=== PATIENT | female | born 1935 | race Caucasian/White ===

== ENCOUNTER → 2017-09-23 | Outpatient (CLI) | payer MEDICARE, BC ==
[~2017-09-23] MED LIST: ASPIRIN 81M81 MG/TA2 PO; COZAAR100 MG PO; NORCO 325 MG-7.1 TAB PO
== END ==
LOC: MC.RAD 16:08
DX: Z12.31 Encounter for screening mammogram for malignant neoplasm of breast (principal)

== ENCOUNTER → 2019-08-25 | Outpatient (CLI) | payer MEDICARE, BC | LOC: MC.RAD 10:32 | DX: Z12.31 Encounter for screening mammogram for malignant neoplasm of breast (principal); R92.0 Mammographic microcalcification found on diagnostic imaging of breast; Z98.890 Other specified postprocedural states ==

== ENCOUNTER → 2019-08-27 | Outpatient (CLI) | payer MEDICARE, BC | LOC: MC.RAD 10:55 | DX: R92.0 Mammographic microcalcification found on diagnostic imaging of breast (principal) ==

== ENCOUNTER → 2020-08-29 | Outpatient (CLI) | payer MEDICARE, BC | LOC: MC.RAD 09:25 | DX: Z12.31 Encounter for screening mammogram for malignant neoplasm of breast (principal); Z98.890 Other specified postprocedural states ==

== ENCOUNTER 2021-06-27 12:35 | Emergency (ER) | payer MEDICARE, BC ==
[2021-06-27] VITALS (12 sets, daily range): BP systolic 125–145; BP diastolic 52–71; PULSE 79–85; TEMP 98.3–98.7
[~2021-06-27] VITALS: Ht 165.1 cm; Wt 77.7 kg
[2021-06-27 13:17] LABS: BASO % 0.4 % (0.0-2.0); EOS % 0.3 % (0-4.0); GRAN % 69.7 % (42.2-75.2); LYMPH # 1.3 (1.2-3.4); LYMPH % 17.8 % (20.0-51.0); MEAN CELL VOLUME 75 fl (80.0-100.0); MEAN CORPUSCULAR HGB CONC 29 g/dl (33.0-37.0); MEAN PLATELET VOLUME 9.1 fl (7.4-10.4); MONO # 0.8 (0.1-0.6); PLATELET COUNT 427 K/mm3 (130-400); RED BLOOD COUNT 2.09 M/mm3 (4.10-5.30); REDCELL DISTRIBUTION WIDTH-CV 17.4 % (11.5-14.5)
[2021-06-27] MEDS ORDERED: XARELTO20 MG PO (13:19)
[2021-06-27 13:24] LABS: ALBUMIN 3.6 gm/dL (3.5-5.0); BILIRUBIN,TOTAL 0.3 mg/dL (0.0-1.0); CALCIUM 8.2 mg/dL (8.4-10.2); CREATININE, serum 1.02 (0.52-1.25); POTASSIUM 4.4 mmol/L (3.4-5.0); TOTAL PROTEIN 6.2 gm/dL (6.4-8.2)
[2021-06-27 13:25] LABS: HEMATOCRIT 15.7 % (37.0-47.0); HEMOGLOBIN 4.5 g/dl (12.5-16.0); MEAN CORPUSCULAR HEMOGLOBIN 22 pg (27.0-31.0)
== END 2021-06-27 16:40 | disposition left against medical advice (07) ==
LOC: COL.ER 12:35
PROVIDERS: Personal Emergency Response Attendant
DX: D64.9 Anemia, unspecified (principal); K92.2 Gastrointestinal hemorrhage, unspecified; Z86.718 Personal history of other venous thrombosis and embolism; Z79.01 Long term (current) use of anticoagulants
CPT/HCPCS: P9016

== ENCOUNTER → 2021-06-28 | Outpatient (CLI) | payer MEDICARE, BC ==
[~2021-06-28] MED LIST changes: +CALCIUM 600600 MG PO; +D3-5050000 IU PO; +FERRO-TIME325 MG PO; +FERROUS SU325 MG/TAB PO; +MICARDIS80 MG PO; +PROTONIX 40MG T40 MG PO; +XARELTO20 MG PO
== END ==
LOC: COL.RAD 13:05
DX: T82.868A Thrombosis due to vascular prosthetic devices, implants and grafts, initial encounter (principal)
CPT/HCPCS: Q9967

== ENCOUNTER 2021-07-10 11:58 | Inpatient (IN) | payer MEDICARE, BC ==
[2021-07-10] VITALS (16 sets, daily range): BP systolic 111–134; BP diastolic 48–64; PULSE 71–89; TEMP 98–98.8
[~2021-07-10] VITALS: Ht 160.1 cm; Wt 77.7 kg
[~2021-07-10 11:58] MED LIST changes: -CALCIUM 600600 MG PO; -D3-5050000 IU PO; -FERRO-TIME325 MG PO; -FERROUS SU325 MG/TAB PO; -MICARDIS80 MG PO; -PROTONIX 40MG T40 MG PO
[2021-07-10 12:50] LABS: ALBUMIN 3.1 gm/dL (3.5-5.0); BILIRUBIN,TOTAL 0.1 mg/dL (0.0-1.0); CALCIUM 7.9 mg/dL (8.4-10.2); CREATININE, serum 1.09 (0.52-1.25); POTASSIUM 4.4 mmol/L (3.4-5.0); TOTAL PROTEIN 5.7 gm/dL (6.4-8.2)
[2021-07-10 12:51] LABS: BASO % 0.1 % (0.0-2.0); EOS % 0.4 % (0-4.0); GRAN # 5.4 (1.4-6.5); GRAN % 69.7 % (42.2-75.2); LYMPH # 1.4 (1.2-3.4); LYMPH % 17.9 % (20.0-51.0); MEAN CELL VOLUME 74 fl (80.0-100.0); MEAN CORPUSCULAR HGB CONC 27 g/dl (33.0-37.0); MEAN PLATELET VOLUME 9.4 fl (7.4-10.4); MONO # 0.9 (0.1-0.6); PLATELET COUNT 543 K/mm3 (130-400); REDCELL DISTRIBUTION WIDTH-CV 20.5 % (11.5-14.5)
[2021-07-10 12:53] LABS: INR 1.1 (0.8-3.0); PROTHROMBIN TIME 11.8 SECONDS (9.7-12.8)
[2021-07-10 12:56] LABS: HEMATOCRIT 12.6 % (37.0-47.0); HEMOGLOBIN 3.4 g/dl (12.5-16.0); MEAN CORPUSCULAR HEMOGLOBIN 20 pg (27.0-31.0); PARTIAL THROMBOPLASTIN TIME 22.4 SECONDS (26.0-37.0)
[2021-07-10] MEDS ORDERED: MICARDIS80 MG PO (15:10)
[2021-07-10] MEDS ORDERED: CALCIUM 600600 MG PO (15:12)
[2021-07-10] MEDS ORDERED: D3-5050000 IU PO (15:12)
[2021-07-10] MEDS ORDERED: PROTONIX 40MG T40 MG PO (15:13)
--- NOTE | 2021-07-10 18:10 | NUR ---
Pt arrived to room 354, she is A/O x4. She ambulates with SBA. SOB with exertion. Reports diarrhea for the last four nights, has not had a stool here. Denies pain. POC discussed with patient including the transfusions she will receive. Clear liquids provided. First unit completed from ER.
--- NOTE | 2021-07-10 19:26 | NUR ---
Second unit of blood started at this time. Protocol followed. This nurse will remain at bedside for first fifteen minutes of transfusion.
[2021-07-11] VITALS (9 sets, daily range): BP systolic 125–146; BP diastolic 53–72; PULSE 75–83; TEMP 98–98.8
--- NOTE | 2021-07-11 04:15 | NUR ---
Patient has finished all 4 bags of blood transfusion. She tolerated well with no signs of transfusion reaction. Patient has ambulated with x1 assist to bathroom twice tonight. She had a medium BM with no signs of blood. She has been NPO since midnight. Call light in reach, will continue to monitor.
[2021-07-11 07:16] LABS: BASO % 0.7 % (0.0-2.0); EOS % 0.3 % (0-4.0); GRAN # 4.4 (1.4-6.5); GRAN % 75.5 % (42.2-75.2); LYMPH # 0.7 (1.2-3.4); LYMPH % 12.1 % (20.0-51.0); MEAN CORPUSCULAR HGB CONC 31 g/dl (33.0-37.0); MEAN PLATELET VOLUME 9.3 fl (7.4-10.4); MONO # 0.6 (0.1-0.6); MONO % 10.4 % (1.7-9.3); RED BLOOD COUNT 2.85 M/mm3 (4.10-5.30); REDCELL DISTRIBUTION WIDTH-CV 21.2 % (11.5-14.5)
[2021-07-11 07:18] LABS: HEMOGLOBIN 7.1 g/dl (12.5-16.0); MEAN CELL VOLUME 81 fl (80.0-100.0); MEAN CORPUSCULAR HEMOGLOBIN 25 pg (27.0-31.0); PLATELET COUNT 344 K/mm3 (130-400)
[2021-07-11 07:29] LABS: CALCIUM 7.7 mg/dL (8.4-10.2); CREATININE, serum 0.89 (0.52-1.25); POTASSIUM 4.3 mmol/L (3.4-5.0)
--- NOTE | 2021-07-11 10:29 | NUR ---
Initial visit; Patient thanked Movie Machine Operator for looking in on her and offering God's blessings and to keep her in Chaplains prayers.
--- NOTE | 2021-07-11 10:56 | NUR ---
DAPHNE met with the patient to discuss discharge plan. The patient lives alone in [place]. She states that she has no family that live nearby, but has great friend support. She reports independence with ADLs and has a cane and walker. The patient's PCP is Dr. Radha Jessica and she receives her medications from [facility]. She reports no difficulties obtaining her meds. The patient does not have a DPOA-HC in EMR, but she states that she does have one completed and that the document is at home. She states that she designated her son, Prakash (ph#[phone]). Prakash lives in [place], [place]. The patient plans to return home upon discharge. She states that a friend will transport her home. DAPHNE asked the PA for PT/OT to be ordered. Due to the patient's hemoglobin being low, PT/OT will be held for now. SW attempted to contact the patient's son, Prakash. SW left him a voicemail. SW to continue to follow. *Discharge plan: home. Awaiting therapy's recs*
[2021-07-11 15:14] LABS: HEMATOCRIT 25.1 % (37.0-47.0); HEMOGLOBIN 7.7 g/dl (12.5-16.0)
--- NOTE | 2021-07-11 19:44 | NUR ---
Pt had EGD today, plan to have colonoscopy tomorrow. Discussed this with the patient. Patient wanted to d/c home and prep there. LYNNE Chowdhury discussed importance of staying with her. Patient agreeable. Denies an improvement in symptoms (dizziness, SOB). Discussed safety when up ambulating with her. Pt has denied any pain. No needs at this time. Call light within reach.
[2021-07-11 21:31] LABS: HEMOGLOBIN 8.5 g/dl (12.5-16.0)
[2021-07-12] VITALS (9 sets, daily range): BP systolic 106–154; BP diastolic 49–92; PULSE 70–87; TEMP 97.7–98.5
[2021-07-12 06:52] LABS: BASO # 0.1 (0.0-0.2); BASO % 0.9 % (0.0-2.0); EOS # 0.1 (0.0-0.7); EOS % 1.1 % (0-4.0); GRAN # 5.8 (1.4-6.5); GRAN % 72.3 % (42.2-75.2); LYMPH # 1.1 (1.2-3.4); LYMPH % 13.7 % (20.0-51.0); MEAN CELL VOLUME 79 fl (80.0-100.0); MEAN CORPUSCULAR HGB CONC 32 g/dl (33.0-37.0); MEAN PLATELET VOLUME 9.4 fl (7.4-10.4); MONO # 0.9 (0.1-0.6); MONO % 10.8 % (1.7-9.3); PLATELET COUNT 414 K/mm3 (130-400); REDCELL DISTRIBUTION WIDTH-CV 21.5 % (11.5-14.5)
[2021-07-12 06:53] LABS: HEMOGLOBIN 8.4 g/dl (12.5-16.0); MEAN CORPUSCULAR HEMOGLOBIN 25 pg (27.0-31.0)
--- NOTE | 2021-07-12 07:00 | NUR ---
Report received from Radha RENNER. Pt sitting on edge of bed, bowel prep almost complete. Reports she had to slow down d/t nausea but tolerating okay at slower pace. Denies needs at this time. Continuing to monitor.
[2021-07-12 07:09] LABS: CALCIUM 8.1 mg/dL (8.4-10.2); CREATININE, serum 0.83 (0.52-1.25); POTASSIUM 3.7 mmol/L (3.4-5.0)
--- NOTE | 2021-07-12 07:50 | NUR ---
Shift assessment complete. Pt sitting on edge of bed. Had BM while this RN in room, BM clear liquid at this time. Has about 1 cup remaining on bowel prep, pt sipping on it slowly. A&Ox4. Heart RRR. Lungs CTA. Denies pain, dizziness, SOA or other concerns. Denies any tenderness to right upper leg, no bruising noted. Denies needs at this time. Continuing to monitor.
--- NOTE | 2021-07-12 08:50 | NUR ---
Bowel prep completed at this time.
--- NOTE | 2021-07-12 12:00 | NUR ---
Pt off unit for colonoscopy at this time.
[2021-07-12] MEDS ORDERED: FERROUS SU325 MG/TAB PO (15:50)
--- NOTE | 2021-07-12 16:13 | NUR ---
The patient is to discharge back home today, 07/12. DAPHNE met with the patient to follow up. The patient states that is returning back home and a friend will transport her home. SW contacted and updated her son, Prakash. Prakash reports that he is on his way up to [place] and will be at the patient's home in an hour. No additional needs at this time.
--- NOTE | 2021-07-12 16:30 | NUR ---
Discharge instructions discussed w/pt and all questions answered. IVs to right AC and left hand removed, tips intact. Pt escorted out to ride via wheelchair w/all belongings.
== END 2021-07-12 16:30 | disposition home or self-care (01) | DRG 378 ==
LOC: COL.ER 11:58 → MEDICAL 13:45
PROVIDERS: Emergency Medicine; Physician Assistant; ADMIT Student in an Organized Health Care Education/Training Program
PROC: 0D5P8ZZ Destruction of Rectum, Via Natural or Artificial Opening Endoscopic (ICD-10-PCS; principal; 2021-07-10)
PROC: 0DBP8ZZ Excision of Rectum, Via Natural or Artificial Opening Endoscopic (ICD-10-PCS; 2021-07-10)
DX: K92.2 Gastrointestinal hemorrhage, unspecified (principal); D62 Acute posthemorrhagic anemia; E87.2 Acidosis; I82.531 Chronic embolism and thrombosis of right popliteal vein; R55 Syncope and collapse; D12.8 Benign neoplasm of rectum; Z66 Do not resuscitate; Z20.822 Contact with and (suspected) exposure to COVID-19; Z85.3 Personal history of malignant neoplasm of breast; Z79.82 Long term (current) use of aspirin
CPT/HCPCS: 99222-AI; 99232-AI; 99239; C9113; J2704; J7030; P9016; Q9967

== ENCOUNTER 2021-07-18 09:58 | Day surgery (SDC) | payer MEDICARE, BC ==
[~2021-07-18] VITALS: Ht 160.2 cm; Wt 75.4 kg
[2021-07-18] VITALS (8 sets, daily range): BP systolic 135–188; BP diastolic 65–82; PULSE 65–75; TEMP 98.1
[~2021-07-18 09:58] MED LIST changes: +CALCIUM 600600 MG PO; +D3-5050000 IU PO; +FERROUS SU325 MG/TAB PO; +MICARDIS80 MG PO; +PROTONIX 40MG T40 MG PO
[2021-07-18] MEDS ORDERED: FERRO-TIME325 MG PO (10:42)
[2021-07-18] MEDS ORDERED: MICARDIS80 MG PO (10:47)
--- NOTE | 2021-07-18 12:30 | NUR ---
Report from Alberto RENNER. Transferred from tender labor by bed. Right groin site CD&I. Alert and oriented, denies pain and needs at this time. VSS
--- NOTE | 2021-07-18 14:35 | NUR ---
INT discontinued intact. Right groin soft to palpation with ambulation.
--- NOTE | 2021-07-18 14:50 | NUR ---
Discharge instructions given. Transferred to private car by pawan
== END 2021-07-18 14:51 | disposition home or self-care (01) ==
LOC: COL.CAR 09:58
DX: I82.501 Chronic embolism and thrombosis of unspecified deep veins of right lower extremity (principal)
CPT/HCPCS: C1880; C1894; J1644; J7120; Q9967

== ENCOUNTER 2022-01-04 11:13 | Inpatient (IN) | payer MEDICARE, BC ==
[~2022-01-04] VITALS: Ht 160 cm; Wt 66.8 kg
[~2022-01-04 11:13] MED LIST changes: +FERRO-TIME325 MG PO
[2022-03-05] VITALS (12 sets, daily range): BP systolic 130–170; BP diastolic 52–79; PULSE 64–89; TEMP 97.6–98.2
--- NOTE | 2022-03-05 05:50 | NUR ---
86 Year old [place] [facility] [place]. Pt was able to stand on a floor scale for weight, height obtained. Son, Orlando is present #[phone]. Medications and HX reviewed. Procedure verified and consent signed. First and last name + verified with pt, who verbalized understanding of procedure. Pt states she is [employer] > 5 years. Pt used the bathroom prior to changing into a clean gown. L knee was scrubbed with CHG, rosa's applied to non-operative side. Warm blankets provided. Non-slip socks are on. IV started in L hand on first attempt with 20G. IVF scanned and are infusing without difficulty. Side rails x2. Physical assessment completed. Call christianson is within reach on side table. Glasses removed to black bag.
[2022-03-05] MEDS ORDERED: VITAMIN C500 MG PO (06:13)
[2022-03-05] MEDS ORDERED: FOLIC ACID 40400 MCG PO (06:13)
[2022-03-05] MEDS ORDERED: TYLENOL PM EXTR1 TA1 PO (06:14)
--- NOTE | 2022-03-05 06:54 | NUR ---
Pt taken to the OR by JUD Hobbs.
--- NOTE | 2022-03-05 09:50 | NUR ---
PATIENT ADMITED INTO ROOM 327 POST OP LTK. A&O. VSS. LEFT KNEE DRESSING IS CD&I WITH BULKY ACEWRAP DRESSING AND ICE PACK INPLACE. TEDS TO RLE. SCD'S TO BLE. POSITIVE PEDAL PULSES TO BLE. NO C/O PAIN OR NAUSEA. IV FLUIDS INFUSING INTO LEFT HAND IV. LIQUIDS AT BEDSIDE. NOT VOIDED POST OP YET. HEAD TO TOE ASSESSMENT COMPLETE. FAMILY AT BEDSIDE. ORIENTED TO ROOM. CALL LIGHT IN REACH. NO OTHER NEEDS AT THIS TIME.
--- NOTE | 2022-03-05 11:28 | NUR ---
PATIENT CALLED OUT C/O SUDDENT PAIN IN HER LLE. SPINAL HAS WORN OFF. GAVE PRN ROXICODONE, ONE TAB FOR PAIN WITH CRACKERS. REPOSITIONED LLE WITH PILLOWS. PATIENT REQUESTING TO HAVE ICE PACK OFF FOR A LITTLE WHILE. SON AT BEDSIDE. NO OTHER NEEDS.
--- NOTE | 2022-03-05 14:30 | NUR ---
NURSING WENT TO CHECK ON PATIENT'S PAIN, SHE WAS SLEEPING SOUNDLY. SON LEFT FOR A WHILE. NO NEEDS. CALL LIGHT IN REACH.
--- NOTE | 2022-03-05 16:30 | NUR ---
PATIENT NOW AWAKE AND WANTING TO SIT AT EDGE OF BED, TOLERATED ACTIVITY WELL. GAVE PRN ROXICODONE, ONE TAB. FAMILY BACK AT BEDSIDE. PATIENT REPOSITIONED TO COMFORT BACK UP IN BED. NO OTHER NEEDS. CALL LIGHT IN REACH.
--- NOTE | 2022-03-05 22:06 | NUR ---
Received report from day shift. Patient alert and oriented x4. VSS. Surgical site assessed. Site CDI and wrapped with ghulam bandage. PM meds administered. Patient requested zofran for nausea, states evening meal was not appealing and appetite was not strong. Patient denies need for pain medication. Denies need for ICE pack. Patient resting in bed with call light near.
[2022-03-06 04:23] VITALS: BP 149/65; PULSE 85; TEMP 98.5
[2022-03-06 06:19] LABS: HEMOGLOBIN 10.3 g/dl (12.5-16.0)
[2022-03-06 06:23] LABS: HEMATOCRIT 31.4 % (37.0-47.0)
[2022-03-06 08:00] VITALS: BP 143/53; PULSE 78; TEMP 98.4
--- NOTE | 2022-03-06 09:32 | NUR ---
Initial visit; Patient thanked Charging Plug Placer for looking in on her and offering God's blessings and keeping her in Charging Plug Placer's prayers.
--- NOTE | 2022-03-06 10:26 | NUR ---
PT RESTING IN RECLINER AFTER THERAPY. AMBULATED WITH A SLOW STEADY GAIT WITH THERAPY. VSS, AM MEDS GIVEN. PT RATING PX @ 09/10. PO MEDS GIVEN AND PT REPORTING PAIN @ 04/10. PT IS A/O X4, EATING AND DRINKING WITH NO N/V.
[2022-03-06 11:31] VITALS: BP 139/72; PULSE 78; TEMP 98.1
--- NOTE | 2022-03-06 12:26 | NUR ---
final assembly worker met with patient to discuss discharge plan. Patient's son Orlando ([phone]) present at bedside. Patient reports that she lives at home alone in [place]. She is independent with her ADL's and uses both a cane and a walker to assist with ambulation. Patient reports to no home oxygen needs. PCP is Dr. Radha Jessica and she uses [facility] ([facility]) for perscriptions with no cost difficulty. Patient does have a DPOA-HC established and a copy can be found in her paper chart. When asked if she has outpatient therapy set up she states that it is set up through [facility]. Discharge plan: Unknown at this time; pending PT/OT pop
--- NOTE | 2022-03-06 12:54 | NUR ---
DRESSING CHANGE COMPLETE, INCISION CDI WITH WELL APPROXIMATED EDGES, AQUACEL AND TEDS PLACED OVER INCISION. PT TOLERATED WELL. PROVIDED EDUCATION ON IMPORTANCE OF STRAIGHTENING OPERATIVE LEG AND NOT RESTING ON PILLOW BEHIND LEG. PT FOUND TO REST WITH BEND IN KNEE. REPOSITIONED AND EXPLAINED IMPORTANCE OF KEEPING OPERATIVE LEG EXTENDED AND NOT RESTING WITH SIGNIFICANT BEND IN KNEE.
[2022-03-06 16:00] VITALS: BP 133/70; PULSE 76; TEMP 98.2
[2022-03-06 20:04] VITALS: BP 162/91; PULSE 80; TEMP 98.5
[2022-03-07 00:07] VITALS: BP 149/67; PULSE 87; TEMP 98.5
--- NOTE | 2022-03-07 00:14 | NUR ---
Received report from day shift. Patient here for LTK. VSS. Patient alert and oriented x4. Patient denies pain at this time. Patient ambulated george with PCT. Patient tolerated activity well. Assessment performed. PM meds administered. Patient resting in bed with call light near.
[2022-03-07 03:59] VITALS: BP 130/43; PULSE 80; TEMP 98
--- NOTE | 2022-03-07 05:47 | NUR ---
Patient had an uneventful night. Patient denied pain and was instructed to lay the left leg flat to allow the effected leg to extend. Patient has been keeping the effected leg slightly flexed. Patient given scheduled Tylenol. Patient is resting in bed with call light near.
[2022-03-07 07:14] VITALS: BP 149/63; PULSE 89; TEMP 98.7
[2022-03-07 08:47] LABS: BASO % 0.2 % (0.0-2.0); EOS % 0.1 % (0.0-4.0); GRAN # 7.5 K/mm3 (1.4-6.5); GRAN % 80.3 % (42.2-75.2); HEMOGLOBIN 11.2 g/dl (12.5-16.0); LYMPH # 0.7 K/mm3 (1.2-3.4); LYMPH % 7.7 % (20.0-51.0); MEAN CELL VOLUME 84 fl (80.0-100.0); MEAN CORPUSCULAR HEMOGLOBIN 28 pg (27-31); MEAN CORPUSCULAR HGB CONC 33 g/dl (33.0-37.0); MEAN PLATELET VOLUME 9.3 fl (7.4-10.4); MONO # 1.1 K/mm3 (0.1-0.6); MONO % 11.4 % (1.7-9.3); PLATELET COUNT 289 K/mm3 (130-400); RED BLOOD COUNT 4.04 M/mm3 (4.10-5.30)
[2022-03-07 08:53] LABS: HEMATOCRIT 34.1 % (37.0-47.0)
[2022-03-07 09:14] LABS: ALBUMIN 2.8 gm/dL (3.4-4.8); ALKALINE PHOSPHATASE 68 U/L (40-150); ANION GAP 10 mmol/L (7-16); AST,SGOT 13 U/L (5-34); BILIRUBIN,TOTAL 0.8 mg/dL (0.2-1.2); BLOOD UREA NITROGEN 17 mg/dL (10-20); CALCIUM 8.5 mg/dL (8.4-10.2); CARBON DIOXIDE 24 mmol/L (23-31); CHLORIDE 96 mmol/L (98-107); CREATININE, serum 0.82 mg/dL (0.57-1.11); GLUCOSE 98 mg/dL (70-99); POTASSIUM 3.5 mmol/L (3.5-4.5); SODIUM 130 mmol/L (136-145); TOTAL PROTEIN 6.2 gm/dL (6.2-8.1)
[2022-03-07 09:18] LABS: ALANINE AMINOTRANSFERASE < 6 U/L (0-55)
[2022-03-07 10:14] LABS: COLLECTION METHOD CATHETER
[2022-03-07 10:25] LABS: MUCOUS Present (NOT PRESENT); PH 6 (5-8); SQUAMOUS EPITHELIAL 0-2 /hpf (0-10); URINE APPEARANCE Clear (CLEAR/HAZY); URINE BACTERIA Rare /hpf (NONE SEEN); URINE BILIRUBIN Negative (NEGATIVE); URINE BLOOD 1+ (NEGATIVE); URINE COLOR Yellow (YELLOW); URINE GLUCOSE Negative (NEGATIVE); URINE KETONE Trace (NEGATIVE); URINE LEUKOCYTE ESTERASE Negative (NEGATIVE); URINE NITRATE Negative (NEGATIVE); URINE PROTEIN(semi-quant) Negative (NEGATIVE); URINE UROBILINOGEN Negative (NEGATIVE)
--- NOTE | 2022-03-07 11:02 | NUR ---
PT CONTINUES TO BE CONFUSED AND UNABLE TO.
[2022-03-07 11:16] LABS: OSMOLALITY-URINE random 235 Osm/kg (50-1200)
--- NOTE | 2022-03-07 11:41 | NUR ---
Patient was scheduled to discharge home today with OP PT. This morning the patient present altered in her mental status. Referral made to Kristin in [facility]. Spoke with the patient's son Orlando at bedside. Orlando states that he was planning on being in town until Saturday, which at that point his was planning on coming down to stay with the patient. He and his had planned on alternating weeks coming down to stay with the patient at her home until she was healed. Informed Orlando that the patient would likely need post acute rehab after today. Orlando verbalizes his agreement with this plan. He states that when he left last night she was "as sharp as a tack". I informed Orlando that i sent a referral to out I[facility] team and that if they are unable to take then we would be looking at SNF placements.
[2022-03-07 12:00] VITALS: BP 153/74; PULSE 90; TEMP 98.5
--- NOTE | 2022-03-07 12:14 | NUR ---
PT CONTINUES TO BE CONFUSED BUT NOT RESTLESS. PT RESTING QUIETLY WITH SON AT BEDSIDE. PT HAD A SIGNIFICANT CHANGE IN MENTAL STATUS. KAYLEE SANDHU NOTIFIED AND HOSPITALIST CONSULTED. SEE COMPUTER FOR NEW ORDERS. PT TO CT FOR HEAD SCAN. NEW LAB ORDERS FILLED. PT CURRENTLYU UNABLE TO FORM A COHERENT SENTENCE.
--- NOTE | 2022-03-07 12:17 | NUR ---
SPEECH THERAPY CONSULTED, THERAPISTS HAVE NOT SEEN PT YET.
[2022-03-07 16:00] VITALS: BP 133/58; PULSE 88; TEMP 98.5
--- NOTE | 2022-03-07 18:49 | NUR ---
RECEIVED CHANGE OF SHIFT REPORT FROM DAY SHIFT RN.
[2022-03-07 20:28] VITALS: BP 126/66; PULSE 98; TEMP 99.2
--- NOTE | 2022-03-07 21:29 | NUR ---
REPORTS SOME NAUSEA, DENIES ANY NEEDS FOR MEDS. AGREED TO TAKE SPRITE. DENIES CHEST PAIN/KNEE PAIN AT THIS TIME. DENIES SOA AT THIS TIME.
[2022-03-08 00:10] VITALS: BP 159/71; PULSE 81; TEMP 99
[2022-03-08 04:34] VITALS: BP 157/64; PULSE 77; TEMP 98.8
[2022-03-08 06:35] LABS: BASO % 0.5 % (0.0-2.0); EOS # 0.1 K/mm3 (0.0-0.7); EOS % 0.8 % (0.0-4.0); GRAN # 4.3 K/mm3 (1.4-6.5); GRAN % 70.5 % (42.2-75.2); LYMPH # 0.8 K/mm3 (1.2-3.4); LYMPH % 13.6 % (20.0-51.0); MEAN CELL VOLUME 85 fl (80.0-100.0); MEAN CORPUSCULAR HGB CONC 33 g/dl (33.0-37.0); MEAN PLATELET VOLUME 9.9 fl (7.4-10.4); MONO # 0.9 K/mm3 (0.1-0.6); MONO % 14.1 % (1.7-9.3); PLATELET COUNT 282 K/mm3 (130-400); RED BLOOD COUNT 3.59 M/mm3 (4.10-5.30)
[2022-03-08 06:39] LABS: HEMATOCRIT 30.4 % (37.0-47.0); HEMOGLOBIN 9.9 g/dl (12.5-16.0); MEAN CORPUSCULAR HEMOGLOBIN 28 pg (27-31)
[2022-03-08 06:57] LABS: CALCIUM 7.9 mg/dL (8.4-10.2); CREATININE, serum 0.73 mg/dL (0.57-1.11); POTASSIUM 3.4 mmol/L (3.5-4.5)
--- NOTE | 2022-03-08 07:13 | NUR ---
CHANGE OF SHIFT REPORT GIVEN TO DAY SHIFT RNMAME
[2022-03-08 08:16] VITALS: BP 145/76; PULSE 62; TEMP 98.6
--- NOTE | 2022-03-08 09:56 | NUR ---
DAPHNE attended rounding with hospitalist team. Patient's symptoms have resolved. Notified by Kristin in [facility] that she has spoken with both the patient and her son at bedside. Both state that they want to go home and feel comfortable with this plan. DAPHNE met with patient and son in room. Patient currently working with OT and is getting a shower at the time of entry. MCR.IM form presented to the patient's son Orlando. Education provided and Orlando reports no concerns with today's dc. Encouraged him to reach out to her PCP if any problems arise at home. Orlando sind form for patient. Signed original placed in the patients chart and copy provided back to Orlando. Discharge plan: Home with family and OP PT
[2022-03-08] MEDS ORDERED: ULTRAM 50MG TAB50 MG PO (12:11)
[2022-03-08] MEDS ORDERED: ELIQUIS 2.5 PO (12:11)
[2022-03-08] MEDS ORDERED: SENOKOT S 50 MG1 TAB PO (12:12)
--- NOTE | 2022-03-08 12:29 | NUR ---
Pt and son were very impatient and stating they were leaving. Son stated he was going to get a wheelchair and wheel pt out. JUD Walter did call and notify ortho that we were waiting on the medications in order for us to finish discharge paperwork. As soon as orders were entered, paperwork was printed. Son stated that we could just mail the paper, informed him it would only be a couple minutes and paperwork would be ready. Son went to get wheelchair, had his mom sit and was starting to walk out. Informed him that he could pull the car up and somebody would push her out. They did not want the paperwork gone over, stated the would sign but didn't want to go over it. Pt escorted out
--- NOTE | 2022-03-08 12:36 | NUR ---
Received report from day shift. Patient sitting on side of bed upon arrival. Patient was asked to orient to time, place, and situation. Patient stated that they knew they were in [place] [address] and just had their knee replaced. Patient placed in chair with bed alarm. Upon returning to give AM medication, patient was found to their IV pulled and blood dripping on gown. Patient was cleaned, IV removed, and hand wrapped with coban. Assessment performed. VSS. Discharge orders put in, waiting on medications to be reviewed by provider. Patient's son stated that he would take her home and paperwork could be sent to them. Charge nurse explained to patient's son that hospital policy is to have patient sign documentation on discharge instructions, medications, and any follow up appointments. Charge nurse discharged patient. Patient escorted out via wheelchair.
== END 2022-03-08 12:30 | disposition home or self-care (01) | DRG 469 ==
LOC: SURG 03-05 05:39 → INPTSU 03-05 05:39 → SURG 03-05 07:30
PROVIDERS: Physician Assistant; ADMIT Orthopaedic Surgery
PROC: 0SRD0J9 Replacement of Left Knee Joint with Synthetic Substitute, Cemented, Open Approach (ICD-10-PCS; principal; 2022-03-05 07:30)
DX: M17.12 Unilateral primary osteoarthritis, left knee (principal); G92.8 Other toxic encephalopathy; E87.1 Hypo-osmolality and hyponatremia; I08.3 Combined rheumatic disorders of mitral, aortic and tricuspid valves; E87.6 Hypokalemia; T40.605A Adverse effect of unspecified narcotics, initial encounter; Z86.718 Personal history of other venous thrombosis and embolism; Z85.3 Personal history of malignant neoplasm of breast
CPT/HCPCS: 99222; 99231-AI; A9284; C1713; C1776; J0690; J2405; J2704; J3010; J7030; J7120

== ENCOUNTER 2024-06-19 10:43 | Emergency (ER) | payer MEDICARE, BC ==
[~2024-06-19] VITALS: Ht 167.6 cm; Wt 81.8 kg
[~2024-06-19 10:43] MED LIST changes: +BASAGLAR K100 UNIT/1 SQ; +BION TEARS OU; +BREO; +CALCIUM 600 PLU1 TAB PO; +CARDIZEM CD 12120 MG PO; +CEFTIN 250250 MG/TAB PO; +DOXYCYCLINE 10100 MG PO; +DULCOLAX STOOL100 MG PO; +ELIQUIS 2.5 PO; +ELIQUIS 5MG PO; +FARXIGA10 PO; +FOLIC ACID 40400 MCG PO; +GLUCOPHAGE500 MG/TAB PO; +HCTZ12.5TAB PO; +INCRUSE EL62.5 MCG/A IH; +K-TAB10 PO; +LASIX 20MG TABL20 MG PO; +LASIX 40MG TABL40 MG PO; +LINZESS72 MCG PO; +LOPRESSOR 225 MG/TAB PO; +MELATONIN5 M1 PO; +MIRALAX PA17 GM/Dose PO; +MOUNJARO7.5 MG/0.5 SQ; +MULTI VITAMINS1 TAB PO; +NEURONTIN300 MG/CAP PO; +NEURONTIN600 MG/TAB; +NEURONTIN600 MG/TAB PO; +NORCO 325 MG-51 TAB PO; +NOVOLOG 100U100 U/M1 SQ; +PACERONE400 MG PO; +REFRESH PLUS 00.4 M1 OU; +RISPERDAL 0.5M0.5 MG; +RISPERDAL2 MG; +SENOKOT S 50 MG1 TAB PO; +TYLENOL PM EXTR1 TA1 PO; +ULTRAM 50MG TAB50 MG PO; +VITAMIN C500 MG PO; +VITAMIN D 400400 IU PO; +ZEBETA 5MG5 MG PO
[2024-06-19 10:53] VITALS: TEMP 97.7
[2024-06-19 11:35] LABS: BASO % 0.5 % (0.0-2.0); EOS % 0.2 % (0.0-4.0); GRAN % 81.8 % (42.2-75.2); HEMATOCRIT 40.7 % (37.0-47.0); HEMOGLOBIN 12.9 g/dl (12.5-16.0); LYMPH # 0.6 K/mm3 (1.2-3.4); MEAN CELL VOLUME 92 fl (80.0-100.0); MEAN CORPUSCULAR HEMOGLOBIN 29 pg (27-31); MEAN CORPUSCULAR HGB CONC 32 g/dl (33.0-37.0); MEAN PLATELET VOLUME 9.8 fl (7.4-10.4); MONO # 0.4 K/mm3 (0.1-0.6); MONO % 6.8 % (1.7-9.3); PLATELET COUNT 232 K/mm3 (130-400); RED BLOOD COUNT 4.41 M/mm3 (4.10-5.30); REDCELL DISTRIBUTION WIDTH-CV 14.6 % (11.5-14.5)
[2024-06-19 11:53] LABS: ALANINE AMINOTRANSFERASE 11 U/L (0-55); ALBUMIN 3.4 g/dL (3.4-4.8); ALKALINE PHOSPHATASE 100 U/L (40-150); ANION GAP 10 mmol/L (7-16); AST,SGOT 17 U/L (5-34); BILIRUBIN,TOTAL 0.5 mg/dL (0.2-1.2); BLOOD UREA NITROGEN 23 mg/dL (10-20); CALCIUM 8.6 mg/dL (8.4-10.2); CHLORIDE 105 mEq/L (98-107); GLUCOSE 114 mg/dL (70-99); MAGNESIUM 2.2 mg/dL (1.6-2.6); POTASSIUM 4.7 mEq/L (3.5-4.5); SODIUM 137 mEq/L (136-145); TOTAL PROTEIN 6.5 g/dl (6.2-8.1)
[2024-06-19 12:07] LABS: TROPONIN-I < 0.010 ng/mL (0.00-0.033)
[2024-06-19 12:47] LABS: INR 1.5 (0.8-3.0); PROTHROMBIN TIME 16.1 SECONDS (9.7-12.8)
[2024-06-19 12:49] LABS: PARTIAL THROMBOPLASTIN TIME 37.2 SECONDS (26.0-37.0)
[2024-06-19 13:53] VITALS: BP 166/75; PULSE 70
== END 2024-06-19 13:53 | disposition home or self-care (01) ==
LOC: COL.ER 10:43
PROVIDERS: Family Medicine
DX: G45.9 Transient cerebral ischemic attack, unspecified (principal); Z79.01 Long term (current) use of anticoagulants